=== PATIENT | female | born 1995 | race Native Hawaiian/Other Pacific Islander ===

== ENCOUNTER 2017-08-06 08:42 | Inpatient (IN) | payer MEDICAID ==
[~2017-08-06] VITALS: Ht 160 cm; Wt 68.0 kg
--- NOTE | 2017-08-06 08:42 | NUR ---
Patient BIBA ACLS, transferred to bed 8. RN evaluating patient at bedside.
--- NOTE | 2017-08-06 08:43 | NUR ---
Dr. Valadez evaluating patient at bedside.
--- NOTE | 2017-08-06 08:45 | NUR ---
21 F BROUGHT IN BY EMS C/O SYNCOPY WITH LOC DURING SHOWER THAT LASTED 2-3 MINS; PT STATED SHE STARTED TO FEEL DIZZY WHILE SHOWERING AND "EVERYTHING WENT BLACK"; PT STATES SHE HIT HER HEAD BUT NO INJURY TO TRAUMA NOTED TO PT; PT ALSO STATES SHE HAS BEEN ON HER MENES X 3 DAYS AND HAS BEEN "THE HEAVIEST" MENES SHE HAS HAD; PT STATES SHE IS GOING THRU 1 PAD PER HOUR; PT DENIES ANY SOB, CP, OR PAIN; PER RETAIL ANALYTICS MANAGER, BLOOD SUGAR IN FIELD 157, 1L NS BOLUS; DENIES N/V/D; SKIN IS PALE AND CLAMMY; AOX4; LUNGS CLEAR BL; RR ARE EVEN AND UNLABORED; PT IS NS ON CM; NAD; PATIENT POSITIONED FOR COMFORT; BED DOWN. ER MD MADE AWARE OF PT STATUS.
[2017-08-06] MEDS ORDERED: NACL 0.9% 1,000 ML IV SCH (08:47)
[2017-08-06 08:55] VITALS: BP 107/45
--- NOTE | 2017-08-06 09:09 | NUR ---
advanced manufacturing technician at bedside.
--- NOTE | 2017-08-06 09:36 | NUR ---
US tech at bedside for exam.
--- NOTE | 2017-08-06 09:41 | NUR ---
PATIENT RESTING IN GURNEY WITH MOTHER OF PT BY BEDSIDE; NAD; RR ARE EVEN AND UNLABORED; WILL CONTINUE TO MONITOR
[2017-08-06 09:54] LABS: ANION GAP 9.9 (8-16); CREATININE 0.6 mg/dL (0.6-1.3); POTASSIUM 3.9 mmol/L (3.5-5.1)
[2017-08-06 09:58] LABS: PROTHROMBIN TIME 11.4 secs (10.8-13.4)
[2017-08-06 09:59] LABS: MEAN CORPUSCULAR HEMOGLOBIN 20 pg (27-31); MEAN CORPUSCULAR HGB CONC 31 g/dL (33-37); MEAN CORPUSCULAR VOLUME 64 fL (80-94); PLATELET COUNT (AUTO) 82 K/uL (140-450); RED CELL DISTRIBUTION WIDTH 20.3 % (11.6-13.7); WHITE BLOOD COUNT (AUTO) 12.3 K/uL (4.5-11.0)
[2017-08-06 10:02] LABS: ALBUMIN 2.8 g/dL (3.4-5.0); TOTAL BILIRUBIN 0.2 mg/dL (0.0-1.0)
[2017-08-06 10:05] LABS: HEMATOCRIT 16.7 % (36-48); HEMOGLOBIN 5.2 g/dL (12.0-16.0)
[2017-08-06 10:25] LABS: EOSINOPHILS % (MANUAL) 1 % (0-4); LYMPHOCYTES % (MANUAL) 15 % (20-46); MONOCYTES % (MANUAL) 3 % (5-12)
[2017-08-06] MEDS ORDERED: NACL 0.9% 1,000 ML IV ONE (10:35)
[2017-08-06 10:42] LABS: BILIRUBIN,URINE NEGATIVE (NEGATIVE); BLOOD, URINE 3+ (NEGATIVE); NITRITE, URINE POSITIVE (NEGATIVE); PH,URINE 7.5 (5.0-9.0); UGLUCOSE 1+ (NEGATIVE)
[2017-08-06 10:47] LABS: APPEARANCE,URINE CLOUDY (CLEAR); COLOR,URINE RED (YELLOW)
[2017-08-06 10:49] LABS: LEUKOCYTE ESTERASE ,URINE 1+ (NEGATIVE)
[2017-08-06 10:51] LABS: RBC,URINE >20 (MANY) /HPF (0-5); WBC,URINE 0-5 (RARE) /HPF (0-5)
[2017-08-06] MEDS ORDERED: HYDROcodone/APAP 7.5/325 MG 1 TAB PO PRN (10:55)
--- NOTE | 2017-08-06 11:13 | NUR ---
Patient will be admitted to care of [facility]ino. Admited to Tele. Will go to room 113. Belongings list completed. Report to Amanda Vasquez.
--- NOTE | 2017-08-06 11:30 | NUR ---
PT ARRIVED AT UNIT. VS STABLE. PT HAS IV ON R AC 18G SL. PT HAS NO COMPLAINTS AT THIS TIME. ALERT AND ORIENTED. PROVIDED PT WITH PADS AND INITIATED FALL PRECAUTION DUE TO HX OF SYNCOPE. ORIENTED PT TO USE OF CALL LIGHT AND ROOM. CALL LIGHT WITHIN REACH. WILL CONTINUE TO MONITOR.
[2017-08-06 11:40] LABS: BARBITURATE, URINE NEG. ng/ml (NEG <=200); BENZODIAZEPINE, URINE NEG. ng/mL (NEG <=200); CANNABINOID, URINE NEG. ng/mL (NEG <=50); CHOL/HDL RATIO 4.7 (1-4.5); COCAINE, URINE NEG. ng/mL (NEG <=300); FREE T4 (FREE THYROXINE) 0.9 ng/dL (0.76-1.46); MAGNESIUM 1.6 mg/dL (1.8-2.4); OPIATE, URINE NEG. ng/mL (NEG <=2000); PHENCYCLIDINE SCREEN,URINE NEG. ng/mL (NEG <=25); PHOSPHORUS 3.1 mg/dL (2.5-4.9); THYROID STIMULATING HORMONE 1.39 uIU/mL (0.34-3.74)
[2017-08-06 12:00] VITALS: BP 103/54
[2017-08-06] MEDS ORDERED: FERRIC GLUCONATE 125 MG in NACL 0.9% 100 ML IV SCH (12:45)
[2017-08-06] MEDS: NACL 0.9% 1,000 ML IV SCH (12:45)
[2017-08-06] MEDS ORDERED: ESTROGENS CONJUGATED 25 MG INJ VIAL IM SCH (13:18)
[2017-08-06] MEDS ORDERED: ACETAMINOPHEN EXTRA STRENGTH 500 MG TAB PO SCH (13:44)
--- NOTE | 2017-08-06 14:00 | NUR ---
PER DR AMATO'S ORDER, ONLY GIVE 1 UNIT OF PRBC.
--- NOTE | 2017-08-06 14:10 | NUR ---
STARTED BLOOD TRANSFUSION @50ML/HR. VS STABLE.
--- NOTE | 2017-08-06 14:25 | NUR ---
STAYED WITH PT FOR FIRST 15 MINUTES OF TRANSFUSION. NO REACTION NOTED. CALL LIGHT WITHIN REACH. WILL CONTINUE TO MONITOR.
--- NOTE | 2017-08-06 16:00 | NUR ---
VS STABLE. PT RESTING COMFORTABLY IN BED. CALL LIGHT WITHIN REACH. WILL CONTINUE TO MONITOR.
--- NOTE | 2017-08-06 17:30 | NUR ---
PT STATED BLEEDING HAS LESSENED. SATURATED 1 PAD DURING 2.5 HOURS.
[2017-08-06] MEDS: LEVOFLOXACIN 750 MG/D5W PREMIX 150 ML IV SCH (18:28)
--- NOTE | 2017-08-06 18:30 | NUR ---
INSERTED NEW IV IN PT'S R F/A 22G. REMOVED OLD IV CANNULA INTACT. PT TOLERATED WELL. CALL LIGHT WITHIN REACH. WILL CONTINUE TO MONITOR.
--- NOTE | 2017-08-06 19:20 | NUR ---
ENDORSED PT TO DONALDO RN AT BEDSIDE. PT IN STABLE CONDITION.
--- NOTE | 2017-08-06 19:22 | NUR ---
RECEIVED REPORT FROM DAY SHIFT NURSE AT BEDSIDE. PT IS AAOX4, ON ROOM AIR. PT HAS A 22 GAUGE IV ON THE [facility] FA, ASYMPTOMATIC, RUNNING NS @80ML/HR. PT IS STABLE, NO SIGNS OF DISTRESS NOTED. SKIN IS INTACT. DISCUSSED PLAN OF CARE WITH PT, PT VERBALIZED UNDERSTANDING. VITAL SIGNS ARE WNL. BED IN LOW POSITION, CALL LIGHT WITHIN REACH. WILL CONTINUE TO MONITOR.
[2017-08-06 20:00] VITALS: BP 94/51
[2017-08-06] MEDS: DOCUSATE SODIUM 100 MG GELCAP PO SCH (20:20)
[2017-08-06 20:45] LABS: BASOPHILS # (AUTO) 0.2 K/uL (0.00-0.22); BASOPHILS % (AUTO) 1.5 % (0.0-2.0); EOSINOPHILS # (AUTO) 0.2 K/uL (0-0.4); EOSINOPHILS % (AUTO) 1.1 % (0.0-4.0); LYMPHOCYTES # (AUTO) 1.7 K/uL (2.5-16.5); LYMPHOCYTES % (AUTO) 11.7 % (20.5-51.1); MEAN CORPUSCULAR HEMOGLOBIN 22 pg (27-31); MEAN CORPUSCULAR HGB CONC 31 g/dL (33-37); MEAN CORPUSCULAR VOLUME 70 fL (80-94); MONOCYTES % (AUTO) 6.9 % (1.7-9.3); NEUTROPHILS % (AUTO) 78.8 % (42.2-75.2); PLATELET COUNT (AUTO) 100 K/uL (140-450); RED CELL DISTRIBUTION WIDTH 25.8 % (11.6-13.7); WHITE BLOOD COUNT (AUTO) 14.1 K/uL (4.5-11.0)
[2017-08-06 20:51] LABS: HEMOGLOBIN 5.9 g/dL (12.0-16.0)
[2017-08-06 20:52] LABS: HEMATOCRIT 18.8 % (36-48)
--- NOTE | 2017-08-06 20:52 | NUR ---
SPOKE TO TERESO FROM LAB OVER THE PHONE, PT HG IS 5.9, HCT 18.8, READ BACK VALUES AND THEN NOTIFIED DR. MSITH. DR SMITH READ BACK VALUES AND STATED SHE WOULD PUT IN ORDERS.
--- NOTE | 2017-08-06 22:06 | NUR ---
BLOOD TRANSFUSION STARTED AT A RATE OF 100ML/HR. PT TOLERATED WELL, VITAL SIGNS WITHIN NORMAL LIMITS. PT DENIES BACK PAIN, SOB, OR CHILLS.
--- NOTE | 2017-08-06 22:52 | NUR ---
SPOKE TO TERESO FROM LAB OVER THE PHONE, PT HG IS 5.9, HCT 18.8, READ BACK VALUES AND THEN NOTIFIED DR. SMITH. DR SMITH READ BACK VALUES AND STATED SHE WOULD PUT IN ORDERS. Addendum: 08/07/17 at 0018 by Edda Reyes RN DISREGARD.
--- NOTE | 2017-08-06 23:21 | NUR ---
PT IS TOLERATING BLOOD TRANSFUSION WELL. VITAL SIGNS HAVE BEEN WNL AND STABLE FOR OVER ONE HOUR. PT DENIES ANY SYMPTOMS. BED IN LOW POSITION, CALL LIGHT WITHIN REACH. WILL CONTINUE TO MONITOR PT CLOSELY.
[2017-08-07 00:15] VITALS: BP 111/53
--- NOTE | 2017-08-07 00:40 | NUR ---
BLOOD TRANSFUSION ENDED. PT VITAL SIGNS WNL. PT STABLE, NO SIGNS OF DISTRESS NOTED. BED IN LOW POSITION, CALL LIGHT WITHIN REACH. WILL CONTINUE TO MONITOR.
--- NOTE | 2017-08-07 00:55 | NUR ---
ADMINISTERED ZOFRAN FOR NAUSEA, PT TOLERATED WELL. PT STABLE, WITHOUT SIGNS OF DISTRESS. BED IN LOW POSITION, CALL LIGHT WITHIN REACH. WILL CONTINUE TO MONITOR.
[2017-08-07] MEDS: ONDANSETRON 4 MG/2 ML VIAL IVP PRN ×2 (00:56→20:25)
[2017-08-07 01:06] LABS: BASOPHILS # (AUTO) 0.3 K/uL (0.00-0.22); EOSINOPHILS # (AUTO) 0.1 K/uL (0-0.4); EOSINOPHILS % (AUTO) 0.7 % (0.0-4.0); MONOCYTES # (AUTO) 0.7 K/uL (0.8-1.0)
[2017-08-07] MEDS: NACL 0.9% 1,000 ML IV SCH ×2 (01:15→14:40)
[2017-08-07 01:28] LABS: BASOPHILS % (AUTO) 1.7 % (0.0-2.0); HEMATOCRIT 21.6 % (36-48); LYMPHOCYTES # (AUTO) 1.1 K/uL (2.5-16.5); MEAN CORPUSCULAR HEMOGLOBIN 23 pg (27-31); MEAN CORPUSCULAR HGB CONC 31 g/dL (33-37); MEAN CORPUSCULAR VOLUME 73 fL (80-94); MONOCYTES % (AUTO) 4.1 % (1.7-9.3); NEUTROPHILS # (AUTO) 14.9 K/uL (1.8-7.7); NEUTROPHILS % (AUTO) 86.8 % (42.2-75.2); PLATELET COUNT (AUTO) 141 K/uL (140-450); RED BLOOD CELL COUNT(AUTO) 2.97 MIL/uL (4.20-5.40); RED CELL DISTRIBUTION WIDTH 26.2 % (11.6-13.7)
[2017-08-07 01:58] LABS: HEMOGLOBIN 6.7 g/dL (12.0-16.0); WHITE BLOOD COUNT (AUTO) 17.1 K/uL (4.5-11.0)
[2017-08-07 01:59] LABS: LYMPHOCYTES % (AUTO) 6.7 % (20.5-51.1)
--- NOTE | 2017-08-07 02:15 | NUR ---
PT STABLE. REFUSED TO LET ANYONE BUT HER MOTHER PUT HER ON A BEDPAN. NO SIGNS OF DISTRESS NOTED. BED IN LOW POSITION, CALL LIGHT WITHIN REACH. WILL CONTINUE TO MONITOR.
[2017-08-07 04:00] VITALS: BP 97/50
--- NOTE | 2017-08-07 04:25 | NUR ---
PT STABLE. VITAL SIGNS WNL. NO SIGNS OF DISTRESS NOTED. BED IN LOW POSITION, CALL LIGHT WITHIN REACH. WILL CONTINUE TO MONITOR.
[2017-08-07 06:18] LABS: BASOPHILS # (AUTO) 0.3 K/uL (0.00-0.22); BASOPHILS % (AUTO) 1.7 % (0.0-2.0); EOSINOPHILS # (AUTO) 0.1 K/uL (0-0.4); EOSINOPHILS % (AUTO) 0.8 % (0.0-4.0); LYMPHOCYTES # (AUTO) 2.9 K/uL (2.5-16.5); LYMPHOCYTES % (AUTO) 17.7 % (20.5-51.1); MEAN CORPUSCULAR HEMOGLOBIN 23 pg (27-31); MEAN CORPUSCULAR HGB CONC 32 g/dL (33-37); MEAN CORPUSCULAR VOLUME 73 fL (80-94); MONOCYTES % (AUTO) 6.4 % (1.7-9.3); NEUTROPHILS # (AUTO) 11.9 K/uL (1.8-7.7); NEUTROPHILS % (AUTO) 73.4 % (42.2-75.2); PLATELET COUNT (AUTO) 96 K/uL (140-450); RED BLOOD CELL COUNT(AUTO) 2.65 MIL/uL (4.20-5.40); RED CELL DISTRIBUTION WIDTH 26.3 % (11.6-13.7); WHITE BLOOD COUNT (AUTO) 16.2 K/uL (4.5-11.0)
[2017-08-07 06:20] LABS: ANION GAP 13.8 (8-16); CARBON DIOXIDE 22.8 mmol/L (21-32); CREATININE 0.7 mg/dL (0.6-1.3); POTASSIUM 3.6 mmol/L (3.5-5.1)
[2017-08-07 06:24] LABS: MAGNESIUM 1.5 mg/dL (1.8-2.4); PHOSPHORUS 4.2 mg/dL (2.5-4.9)
--- NOTE | 2017-08-07 06:30 | NUR ---
PT STILL SLEEPING, MOTHER AT BEDSIDE. PT STABLE. NO SIGNS OF DISTRESS NOTED. BED IN LOW POSITION, CALL LIGHT WITHIN REACH. WILL CONTINUE TO MONITOR.
[2017-08-07 06:54] LABS: HEMATOCRIT 19.2 % (36-48); HEMOGLOBIN 6.2 g/dL (12.0-16.0)
--- NOTE | 2017-08-07 07:25 | NUR ---
ENDORSED PT TO DAY SHIFT RN FOR CONTINUITY OF CARE. PT IN STABLE CONDITION.
--- NOTE | 2017-08-07 07:26 | NUR ---
RECEIVED REPORT FROM LADLE CAR OPERATOR NURSE AT BEDSIDE FOR CONTINUITY OF CARE. PT IS AWAKE AND ORIENTED. INTRODUCED SELF AND UPDATED BOARD. VS ARE WNL. WILL RETURN WITH MEDS AND CONTINUE TO MONITOR.
[2017-08-07 08:00] VITALS: BP 114/65
[2017-08-07] MEDS ORDERED: ESTROGENS CONJUGATED 25 MG INJ VIAL IM SCH (08:37)
[2017-08-07] MEDS: LACTOBACILLUS RHAMNOSUS GG 1 EACH CAP PO SCH (09:08)
[2017-08-07] MEDS: CALCIUM CARBONATE 500 MG TAB PO SCH (09:08)
--- NOTE | 2017-08-07 09:08 | NUR ---
ADMINISTERED SCHEDULED MEDS. STATED SHE HAD NO BM FOR A FEW DAYS. GAVE COLACE FOR CONSTIPATION. PT TOLERATED MEDS WELL. NO COMPLAINTS AT THIS TIME WILL CONTINUE TO MONITOR.
[2017-08-07] MEDS: DOCUSATE SODIUM 100 MG GELCAP PO SCH ×2 (09:11→20:25)
--- NOTE | 2017-08-07 09:13 | NUR ---
PATIENT HAS BEEN SCREENED AND CATEGORIZED LOW NUTRITION RISK. PATIENT WILL BE SEEN WITHIN 7 DAYS OF ADMISSION. 08/12/[address]
[2017-08-07] MEDS ORDERED: WATER STERILE 10 ML MC ONE (10:26)
[2017-08-07] MEDS ORDERED: MAG SULF 2000 MG/WATER PREMIX 50 ML IV SCH (11:11)
[2017-08-07] MEDS ORDERED: ORTHO TRI CYCLEN PO SCH ×2 (11:17→11:24)
--- NOTE | 2017-08-07 11:25 | NUR ---
BLOOD TRANSFUSION STARTED. VS: TEMP 98.6 PULSE 94 RR 18 BP 106/56 PAIN 0.
[2017-08-07 12:00] VITALS: BP 110/58
--- NOTE | 2017-08-07 12:07 | NUR ---
CHECKED ON PT IN ROOM. BLOOD TRANSFUSION STILL INFUSING. NO REACTIONS NOTED. PT DENIES PAIN. NO FEVER. PT IS RESTING IN BED RIGHT NOW. FAMILY MEMBERS AT BEDSIDE.
--- NOTE | 2017-08-07 14:09 | NUR ---
BLOOD TRANSFUSION COMPLETED 275ML INFUSED. VS: TEMP 98.4 PULSE 103 RR 18 BP 123/58 PAIN 0/10.
--- NOTE | 2017-08-07 14:48 | NUR ---
STARTED MAG-RIDER IVPB. PT TOLERATING WELL. PT AMBULATED TO BATHROOM AND CHANGED PERIPAD. PT STATED SHE IS STILL HAVING BLEEDING CHANGING PAD EVERY 2-3 HOURS. PT ALSO STARTED FIRST DOSE OF CONTROL PILL AND GIVEN INSTRUCTIONS HOW TO TAKE AND WHEN TO TAKE PILL. PT VERBALIZED UNDERSTANDING AND AWARE OF NEED TO TAKE EVERYDAY AT SAME TIME. PT HAS NO OTHER COMPLAINS AT THIS TIME. FAMILY IS STILL AT BEDSIDE. WILL CONTINUE TO MONITOR.
[2017-08-07 16:00] VITALS: BP 118/58
[2017-08-07] MEDS: LEVOFLOXACIN 750 MG/D5W PREMIX 150 ML IV SCH (18:01)
--- NOTE | 2017-08-07 18:01 | NUR ---
ADMINISTERED LEVAQUIN IVPB. PT TOLERATING WELL. IV IS ON RIGHT FA 22G SITE IS INTACT. PT IS EATING DINNER RIGHT NOW AND HAS FAMILY AT BEDSIDE.
--- NOTE | 2017-08-07 18:30 | NUR ---
PT REQUESTED ZOFRAN FOR NAUSEA, ZOFRAN ADMINISTERED ALONG WITH SCHEDULED MED. PT TOLERATED WELL. PT IS STABLE, NO SIGNS OF DISTRESS NOTED. BED IN LOW POSITION, CALL LIGHT WITHIN REACH. WILL CONTINUE TO MONITOR. Addendum: 08/08/17 at 0826 by Edda Reyes RN WRONG ENTRY
[2017-08-07 19:13] LABS: BASOPHILS # (AUTO) 0.4 K/uL (0.00-0.22); BASOPHILS % (AUTO) 2.2 % (0.0-2.0); EOSINOPHILS # (AUTO) 0.1 K/uL (0-0.4); EOSINOPHILS % (AUTO) 0.7 % (0.0-4.0); LYMPHOCYTES % (AUTO) 18.8 % (20.5-51.1); MEAN CORPUSCULAR HEMOGLOBIN 25 pg (27-31); MEAN CORPUSCULAR HGB CONC 33 g/dL (33-37); MEAN CORPUSCULAR VOLUME 76 fL (80-94); MONOCYTES # (AUTO) 0.9 K/uL (0.8-1.0); MONOCYTES % (AUTO) 5.6 % (1.7-9.3); NEUTROPHILS # (AUTO) 11.6 K/uL (1.8-7.7); NEUTROPHILS % (AUTO) 72.7 % (42.2-75.2); PLATELET COUNT (AUTO) 149 K/uL (140-450); RED BLOOD CELL COUNT(AUTO) 2.59 MIL/uL (4.20-5.40)
--- NOTE | 2017-08-07 19:20 | NUR ---
ENDORSED PT TO ASSISTANT FOOTBALL COACH NURSE AT BEDSIDE FOR CONTINUITY OF CARE. PT IS AWAKE AND INSTABLE CONDITION.
--- NOTE | 2017-08-07 19:26 | NUR ---
RECEIVED REPORT FROM DAY SHIFT NURSE AT BEDSIDE. PT IS AAOX4, ON ROOM AIR. PT HAS A 22 GAUGE IV ON THE RIGHT FA, ASYMPTOMATIC, RUNNING NS @80ML/HR. PT IS STABLE, NO SIGNS OF DISTRESS NOTED. SKIN IS INTACT. DISCUSSED PLAN OF CARE WITH PT, PT VERBALIZED UNDERSTANDING. VITAL SIGNS ARE WNL. BED IN LOW POSITION, CALL LIGHT WITHIN REACH. WILL CONTINUE TO MONITOR.
[2017-08-07 19:29] LABS: HEMATOCRIT 19.6 % (36-48); HEMOGLOBIN 6.4 g/dL (12.0-16.0)
[2017-08-07 20:00] VITALS: BP 126/77
--- NOTE | 2017-08-07 20:30 | NUR ---
PT REQUESTED ZOFRAN FOR NAUSEA, ZOFRAN ADMINISTERED ALONG WITH SCHEDULED MED. PT TOLERATED WELL. PT IS STABLE, NO SIGNS OF DISTRESS NOTED. BED IN LOW POSITION, CALL LIGHT WITHIN REACH. WILL CONTINUE TO MONITOR.
--- NOTE | 2017-08-07 22:35 | NUR ---
PT IS STABLE, NO SIGNS OF DISTRESS NOTED. PT CHANGED PAD INDEPENDENTLY. BED IN LOW POSITION, CALL LIGHT WITHIN REACH. WILL CONTINUE TO MONITOR.
[2017-08-08] VITALS: BP 119/67
--- NOTE | 2017-08-08 00:30 | NUR ---
PT IS STABLE, NO SIGNS OF DISTRESS NOTED. VITAL SIGNS WITHIN NORMAL LIMITS. BED IN LOW POSITION, CALL LIGHT WITHIN REACH. WILL CONTINUE TO MONITOR.
[2017-08-08] MEDS: NACL 0.9% 1,000 ML IV SCH (02:15)
--- NOTE | 2017-08-08 02:45 | NUR ---
PT ASLEEP, IN STABLE CONDITION, NO SIGNS OF DISTRESS NOTED. BED IN LOW POSITION, CALL LIGHT WITHIN REACH. WILL CONTINUE TO MONITOR.
[2017-08-08 04:00] VITALS: BP 104/49
--- NOTE | 2017-08-08 04:20 | NUR ---
PT VITAL SIGNS ARE WITHIN NORMAL LIMITS. PT IS STABLE, NO SIGNS OF DISTRESS NOTED. BED IN LOW POSITION, CALL LIGHT WITHIN REACH. WILL CONTINUE TO MONITOR.
[2017-08-08] MEDS: ONDANSETRON 4 MG/2 ML VIAL IVP PRN (05:29)
--- NOTE | 2017-08-08 05:30 | NUR ---
PT C/O NAUSEA, ZOFRAN ADMINISTERED. PT TOLERATED WELL. PT IS STABLE, NO SIGNS OF DISTRESS NOTED. BED IN LOW POSITION, CALL LIGHT WITHIN REACH. WILL CONTINUE TO MONITOR.
[2017-08-08 06:57] LABS: ANION GAP 9.9 (8-16); CARBON DIOXIDE 24.8 mmol/L (21-32); CREATININE 0.7 mg/dL (0.6-1.3); POTASSIUM 3.7 mmol/L (3.5-5.1)
[2017-08-08 07:04] LABS: MAGNESIUM 1.8 mg/dL (1.8-2.4); PHOSPHORUS 3.2 mg/dL (2.5-4.9)
--- NOTE | 2017-08-08 07:30 | NUR ---
PT RECEIVED IN BED AWAKE ALERT AND ORIENTED X4. RESPONSIVE TO VERBAL COMMAND. PT DENIES ANY PAIN AT THIS TIME. IVF INFUSING ORDERED. PT'S MOTHER AT THE BED SITE.
--- NOTE | 2017-08-08 07:30 | NUR ---
ENDORSED PT AT BEDSIDE TO DAY SHIFT RN ELIZABETH, FOR CONTINUITY OF CARE. PT IN STABLE CONDITION.
[2017-08-08 08:00] VITALS: BP 113/58
[2017-08-08] MEDS: COMMUNICATION ORDER MC SCH (09:00)
[2017-08-08] MEDS ORDERED: ORTHO TRI CYCLEN PO SCH (09:00)
[2017-08-08] MEDS: DOCUSATE SODIUM 100 MG GELCAP PO SCH ×2 (09:49→20:47)
[2017-08-08] MEDS: LACTOBACILLUS RHAMNOSUS GG 1 EACH CAP PO SCH (09:50)
[2017-08-08] MEDS: CALCIUM CARBONATE 500 MG TAB PO SCH (09:50)
[2017-08-08 10:01] LABS: BASOPHILS # (AUTO) 0.4 K/uL (0.00-0.22); BASOPHILS % (AUTO) 2.7 % (0.0-2.0); EOSINOPHILS # (AUTO) 0.2 K/uL (0-0.4); EOSINOPHILS % (AUTO) 1.7 % (0.0-4.0); LYMPHOCYTES # (AUTO) 2.4 K/uL (2.5-16.5); LYMPHOCYTES % (AUTO) 17.7 % (20.5-51.1); MEAN CORPUSCULAR HEMOGLOBIN 25 pg (27-31); MEAN CORPUSCULAR HGB CONC 33 g/dL (33-37); MEAN CORPUSCULAR VOLUME 75 fL (80-94); MONOCYTES % (AUTO) 7.3 % (1.7-9.3); NEUTROPHILS # (AUTO) 9.8 K/uL (1.8-7.7); NEUTROPHILS % (AUTO) 70.6 % (42.2-75.2); PLATELET COUNT (AUTO) 62 K/uL (140-450); RED BLOOD CELL COUNT(AUTO) 1.99 MIL/uL (4.20-5.40); RED CELL DISTRIBUTION WIDTH 26.1 % (11.6-13.7); WHITE BLOOD COUNT (AUTO) 13.8 K/uL (4.5-11.0)
--- NOTE | 2017-08-08 10:22 | NUR ---
DR SHIPLEY INFORMED ABOUT H/H OF 04/03. WILL REVIEW THE LABS HERSELF AND ORDER THE APPROPRIATE COVERAGE.
[2017-08-08 11:56] VITALS: BP 106/48
[2017-08-08] MEDS: ORTHO TRI CYCLEN PO SCH (14:16)
[2017-08-08] MEDS: ACETAMINOPHEN 325 MG TAB PO PRN ×2 (14:25→22:30)
[2017-08-08 16:00] VITALS: BP 92/46
[2017-08-08] MEDS: LEVOFLOXACIN 750 MG/D5W PREMIX 150 ML IV SCH (17:47)
--- NOTE | 2017-08-08 19:30 | NUR ---
PATIENT REPORT RECEIVED AT BEDSIDE FROM MORNING NURSE. PATIENT'S FAMILY PRESENT. NO SIGNS AND SYMPTOMS OF DISTRESS NOTED. NO COMPLAINTS OF PAIN AT THIS TIME. IV SITE NOTED ON RIGHT FOREARM. IVF INFUSING WELL. BED IN LOWEST POSITION, SIDE RAILS UP AND CALL LIGHT WITHIN REACH.
--- NOTE | 2017-08-08 19:39 | NUR ---
PT UP SITTING IN BED TALKING TO HER FRIEND. NO DISTRESS OR PAIN AT THIS TIME. 1 UNIT OF PRBC ORDERED.
[2017-08-08 20:00] VITALS: BP 110/53
--- NOTE | 2017-08-08 21:50 | NUR ---
IV SITE ON RIGHT FOREARM DISCONTINUED. IV CANNULA INTACT. NEW IV SITE INSERTED ON RIGHT UPPER FOREARM, 20 GAUGE. SITE IS ASYMPTOMATIC AND PATENT
--- NOTE | 2017-08-08 22:05 | NUR ---
BLOOD TRANSFUSION STARTED. VITAL SIGNS TAKEN AND ARE WITHIN NORMAL LIMITS. NO SIGNS AND SYMPTOMS OF DISTRESS NOTED. NO COMPLAINTS OF PAIN. WILL CONTINUE TO MONITOR
--- NOTE | 2017-08-08 23:00 | NUR ---
CHECKED ON PATIENT, BLOOD TRANSFUSION STILL ON GOING. NO SIGNS AND SYMPTOMS OF DISTRESS NOTED. WILL CONTINUE TO MONITOR.
[2017-08-09] VITALS (7 sets, daily range): BP systolic 99–105; BP diastolic 48–58
--- NOTE | 2017-08-09 | NUR ---
CHECKED ON PATIENT, BLOOD TRANSFUSION STILL ON GOING. NO SIGNS AND SYMPTOMS OF DISTRESS NOTED. VITAL SIGNS WITHIN NORMAL LIMITS. WILL CONTINUE TO MONITOR.
--- NOTE | 2017-08-09 00:50 | NUR ---
BLOOD TRANSFUSION COMPLETE. NO SIGNS AND SYMPTOMS OF DISTRESS NOTED. VITAL SIGNS: BP-97/51, TEMP-98.6, PULSE RATE-91, O2 SAT-100%, RR-18
[2017-08-09] MEDS: ONDANSETRON 4 MG/2 ML VIAL IVP PRN (04:47)
[2017-08-09 06:40] LABS: EOSINOPHILS # (AUTO) 0.2 K/uL (0-0.4)
[2017-08-09 06:49] LABS: ANION GAP 12.5 (8-16); CREATININE 0.7 mg/dL (0.6-1.3); POTASSIUM 3.5 mmol/L (3.5-5.1)
[2017-08-09 06:54] LABS: PROTHROMBIN TIME 10.6 secs (10.8-13.4)
[2017-08-09 06:58] LABS: MAGNESIUM 1.8 mg/dL (1.8-2.4)
[2017-08-09 07:07] LABS: BASOPHILS # (AUTO) 0.5 K/uL (0.00-0.22); BASOPHILS % (AUTO) 3.4 % (0.0-2.0); LYMPHOCYTES # (AUTO) 2.4 K/uL (2.5-16.5); LYMPHOCYTES % (AUTO) 14.9 % (20.5-51.1); MEAN CORPUSCULAR HEMOGLOBIN 26 pg (27-31); MEAN CORPUSCULAR HGB CONC 33 g/dL (33-37); MEAN CORPUSCULAR VOLUME 78 fL (80-94); MONOCYTES % (AUTO) 6.1 % (1.7-9.3); NEUTROPHILS # (AUTO) 11.7 K/uL (1.8-7.7); NEUTROPHILS % (AUTO) 74.6 % (42.2-75.2); PLATELET COUNT (AUTO) 132 K/uL (140-450); RED BLOOD CELL COUNT(AUTO) 2.37 MIL/uL (4.20-5.40); WHITE BLOOD COUNT (AUTO) 15.8 K/uL (4.5-11.0)
--- NOTE | 2017-08-09 07:25 | NUR ---
PATIENT REPORT GIVEN AT BEDSIDE TO MORNING NURSE. PATIENT IS IN STABLE CONDITION.
--- NOTE | 2017-08-09 07:26 | NUR ---
RECEIVED REPORT FROM TOUR AGENT NURSE AT BEDSIDE FOR CONTINUITY OF CARE. PT IS ASLEEP RIGHT NOW. FAMILY AT BEDSIDE.
[2017-08-09 07:54] LABS: HEMATOCRIT 18.5 % (36-48); HEMOGLOBIN 6.1 g/dL (12.0-16.0)
[2017-08-09] MEDS: LACTOBACILLUS RHAMNOSUS GG 1 EACH CAP PO SCH (08:40)
[2017-08-09] MEDS: CALCIUM CARBONATE 500 MG TAB PO SCH (08:40)
[2017-08-09] MEDS: DOCUSATE SODIUM 100 MG GELCAP PO SCH ×2 (08:40→20:25)
--- NOTE | 2017-08-09 08:40 | NUR ---
ADMINISTERED SCHEDULED MEDS TO PT. PT TOLERATED WELL. PT STATED SHE HAD A BM YESTERDAY AND REQUESTED PRUNE JUICE. PT VS WNL. DENIES PAIN AND HEAVY BLEEDING. PT STATED SHE HAS LITTLE AMOUNT OF BLOOD ON PERIPADS. IV IS ON RIGHT FA 20G NS AT 10ML/HR. SKIN IS INTACT. DISCUSSED PLAN FOR TODAY WITH PT. SHE HAS NO COMPLAINTS AT THIS TIME. WILL CONTINUE TO MONITOR.
[2017-08-09] MEDS: COMMUNICATION ORDER MC SCH (08:41)
[2017-08-09] MEDS: NACL 0.9% 1,000 ML IV SCH (11:29)
[2017-08-09] MEDS: FERRIC GLUCONATE 125 MG in NACL 0.9% 100 ML IV SCH (11:30)
--- NOTE | 2017-08-09 11:30 | NUR ---
ADMINISTERED FERRLECIT IVPB. PT TOLERATING WELL. INSTRUCTED PT TO CALL RN WHEN NEED TO USE BATHROOM AND CHANGE PERIPAD TO OBSERVE SATURATION OF PAD. PT VERBALIZED UNDERSTANDING AND STATE SHE WILL CALL NEXT TIME SHE CHANGES PERIPAD. PT IS RESTING IN BED RIGHT NOW. WILL CONTINUE TO MONITOR.
--- NOTE | 2017-08-09 12:39 | NUR ---
CHECKED ON PT IN ROOM. FERRLECIT STILL INFUSING IVPB. PT TOLERATING WELL. PT IS SITTING UP IN BED EATING LUNCH. FAMILY MEMBERS ARE AT BEDSIDE. INFORMED PT AGAIN TO CALL WHEN SHE NEEDS TO CHANGE HER PERIPAD. PT VERBALIZED UNDERSTANDING.
--- NOTE | 2017-08-09 13:45 | NUR ---
CHECKED PERIPAD. MODERATE AMOUNT OF BLOOD NOTED. PT STATED SHE LAST CHANGED HER PAD THIS MORNING AND WILL CALL WHEN NEXT TIME SHE CHANGES PERIPAD.
[2017-08-09] MEDS: ORTHO TRI CYCLEN PO SCH (14:20)
--- NOTE | 2017-08-09 14:20 | NUR ---
ADMINISTERED ORAL TRI CYCLEN. PER PT REQUEST TO TAKE PILL SAME TIME EVERYDAY AT 1430. PT TOLERATED WELL. MOM IS AT BEDSIDE. NO COMPLAINTS AT THIS TIME WILL CONTINUE TO MONITOR.
--- NOTE | 2017-08-09 16:45 | NUR ---
CHECKED PERIPAD. MODERATE AMOUNT OF BLOOD NOTED. PT GOT UP TO USE BATHROOM TO VOID. DENIES PAIN. VS: BP 105/56 HR 86 RR 17 O2 SAT 98% ON ROOM AIR TEMP 98.8 F. PT IS RESTING COMFORTABLY IN BED. MOTHER IS AT BEDSIDE. WILL CONTINUE TO MONITOR.
[2017-08-09] MEDS: LEVOFLOXACIN 750 MG/D5W PREMIX 150 ML IV SCH (17:34)
--- NOTE | 2017-08-09 18:55 | NUR ---
CHECKED PT PERIPAD. MODERATE AMOUNT OF BLOOD NOTED. NO SATURATED PERIPAD OR HEAVY BLEEDING REPORTED FROM PT.
--- NOTE | 2017-08-09 19:05 | NUR ---
ENDORSED PT TO TRANSPORTATION CONSULTANT NURSE AT BEDSIDE FOR CONTINUITY OF CARE. PT IN STABLE CONDITION. MOTHER IS AT BEDSIDE.
--- NOTE | 2017-08-09 19:10 | NUR ---
RECEIVED PT IN STABLE CONDITION FROM AM NURSE. AWAKE,ALERT AND ORIENTED X4. AMBULATORY TO BATHROOM. ON TELE MONITOR-SR. DENIES ANY PAIN NOR DISCOMFORT NOTED . WITH IVF INFUSING WELL ON THE RT FA#20. CLEAR AND PATENT. PLAN OF CARE DISCUSSED WITH PT AND VERBALIZED UNDERSTANDING. CALL LIGHT PLACED WITHIN EASY REACH. WILL CONTINUE TO MONITOR.
--- NOTE | 2017-08-09 20:00 | NUR ---
1 UNIT PRBC STARTED AFTER VERIFIED WITH DEONTE ZHANG CHARGE AND WITH PT. PT MADE AWARE OF THE REACTIONS THAT NEED TO MONITOR WHILE ON TRANSFUSION. PT VERBALIZED UNDERSTANDING. WILL CONTINUE TO MONITOR.
--- NOTE | 2017-08-09 21:15 | NUR ---
CHECKED ON PT. BLOOD TRANSFUSION STILL GOING ON. VITAL SIGNS STABLE. NO REACTION NOTED AT THIS TIME. WILL CONTINUE TO MONITOR.
--- NOTE | 2017-08-09 22:15 | NUR ---
CHECKED ON PT. BLOOD TRANSFUSION STILL GOING ON. PT JUST BEEN TO BATHROOM. CHANGED PADS. WITH SCANTY VAGINAL BLEEDING.
--- NOTE | 2017-08-09 23:30 | NUR ---
BLOOD TRANSFUSION OF 1 UNIT PRBC FINISHED. VITAL SIGNS TAKEN, STABLE. NO REACTION NOTED.
--- NOTE | 2017-08-10 01:30 | NUR ---
SLEEPING WELL AT THIS TIME. NO S/S OF ANY DISCOMFORT NOTED.
--- NOTE | 2017-08-10 02:30 | NUR ---
PT UP TO THE BATHROOM. CHANGED PAD WITH MODERATE VAGINAL BLEEDING. NO C/O PAIN NOTED.
[2017-08-10 04:00] VITALS: BP 106/59
--- NOTE | 2017-08-10 04:00 | NUR ---
REPOSITIONED FOR COMFORT. NO C/O ANY DISCOMFORT NOTED.
--- NOTE | 2017-08-10 06:19 | NUR ---
BLOOD DRAWN THIS AM . WILL FOLLOW UP RESULT.
[2017-08-10 07:13] LABS: BASOPHILS # (AUTO) 0.5 K/uL (0.00-0.22); BASOPHILS % (AUTO) 3.5 % (0.0-2.0); EOSINOPHILS # (AUTO) 0.2 K/uL (0-0.4); EOSINOPHILS % (AUTO) 1.5 % (0.0-4.0); LYMPHOCYTES # (AUTO) 2.1 K/uL (2.5-16.5); LYMPHOCYTES % (AUTO) 14.2 % (20.5-51.1); MEAN CORPUSCULAR HEMOGLOBIN 27 pg (27-31); MEAN CORPUSCULAR HGB CONC 33 g/dL (33-37); MEAN CORPUSCULAR VOLUME 81 fL (80-94); MONOCYTES # (AUTO) 0.9 K/uL (0.8-1.0); MONOCYTES % (AUTO) 6.2 % (1.7-9.3); NEUTROPHILS # (AUTO) 10.9 K/uL (1.8-7.7); NEUTROPHILS % (AUTO) 74.6 % (42.2-75.2); PLATELET COUNT (AUTO) 154 K/uL (140-450); RED BLOOD CELL COUNT(AUTO) 2.56 MIL/uL (4.20-5.40); RED CELL DISTRIBUTION WIDTH 21.6 % (11.6-13.7); WHITE BLOOD COUNT (AUTO) 14.6 K/uL (4.5-11.0)
[2017-08-10 07:20] LABS: ANION GAP 13.1 (8-16); CARBON DIOXIDE 25.9 mmol/L (21-32); CREATININE 0.7 mg/dL (0.6-1.3)
--- NOTE | 2017-08-10 07:20 | NUR ---
ENDORSED PT IN STABLE CONDITION TO AM NURSE.
--- NOTE | 2017-08-10 07:21 | NUR ---
RECEIVED PT FROM STRIPPING SHOVEL OPERATOR RN AT BEDSIDE. PT IS A&OX4. PT HAS IV ON R F/A 20G RUNNING NS@10ML/HR. PT HAS NO COMPLAINTS AT THIS TIME. STATED PAD CHANGED THIS AM HAD ONLY SCANT BLOOD. NO ACUTE DISTRESS NOTED IN PT. CALL LIGHT WITHIN REACH. WILL CONTINUE TO MONITOR.
[2017-08-10 08:00] VITALS: BP 108/59
[2017-08-10 08:25] LABS: HEMOGLOBIN 6.8 g/dL (12.0-16.0)
[2017-08-10 08:29] LABS: HEMATOCRIT 20.6 % (36-48)
[2017-08-10] MEDS ORDERED: ASCORBIC ACID 500 MG TAB PO SCH (09:00)
--- NOTE | 2017-08-10 09:00 | NUR ---
PT IS STABLE. NO COMPLAINTS. CALL LIGHT WITHIN REACH. WILL CONTINUE TO MONITOR.
[2017-08-10] MEDS: CALCIUM CARBONATE 500 MG TAB PO SCH (09:36)
[2017-08-10] MEDS: DOCUSATE SODIUM 100 MG GELCAP PO SCH (09:36)
[2017-08-10] MEDS: LACTOBACILLUS RHAMNOSUS GG 1 EACH CAP PO SCH (09:36)
[2017-08-10] MEDS: COMMUNICATION ORDER MC SCH (09:37)
[2017-08-10] MEDS ORDERED: NORG1TAB8 PO (10:27)
[2017-08-10] MEDS ORDERED: OSC500 PO (10:27)
[2017-08-10] MEDS ORDERED: LACT10CA PO (10:27)
[2017-08-10] MEDS ORDERED: LEVO250T2 PO (10:27)
[2017-08-10] MEDS ORDERED: ASCO500T93 PO (10:27)
[2017-08-10] MEDS ORDERED: FERR324T11 PO (10:27)
[2017-08-10 11:05] VITALS: BP 108/59
--- NOTE | 2017-08-10 11:50 | NUR ---
WENT OVER DC PAPERWORK, F/U APPT TIMES WITH DR. JERMAINE HINES AND DR. MONAE, AND ALL MEDS WITH PT. PT VERBALIZED UNDERSTANDING AND SIGNED APPROPRIATE PAPERWORK. CALL LIGHT WITHIN REACH. WILL CONTINUE TO MONITOR.
[2017-08-10] MEDS: FERRIC GLUCONATE 125 MG in NACL 0.9% 100 ML IV SCH (11:56)
[2017-08-10 12:00] VITALS: BP 112/56
--- NOTE | 2017-08-10 13:00 | NUR ---
PT IN STABLE CONDITION. EATING LUNCH IN BED. CALL LIGHT WITHIN REACH. WILL CONTINUE TO MONITOR.
--- NOTE | 2017-08-10 14:09 | NUR ---
REMOVED IV, CANNULA INTACT. CUT ALL ID BANDS. PT REFUSED WHEELCHAIR. PT IN STABLE CONDITION. WALKED PT OUT OF HOSPITAL, ACCOMPANIED BY MOTHER.
== END 2017-08-10 14:09 | disposition home or self-care (01) | DRG 720 ==
LOC: MED 08:42 → MTU 10:57
PROVIDERS: ADMIT Family Medicine; ATTEND Family Medicine
PROC: 30233N1 Transfusion of Nonautologous Red Blood Cells into Peripheral Vein, Percutaneous Approach (ICD-10-PCS; principal; 2017-08-06)
DX: A41.9 Sepsis, unspecified organism (principal); N17.0 Acute kidney failure with tubular necrosis; D62 Acute posthemorrhagic anemia; E83.51 Hypocalcemia; E83.42 Hypomagnesemia; D69.59 Other secondary thrombocytopenia; N92.0 Excessive and frequent menstruation with regular cycle; N39.0 Urinary tract infection, site not specified; Z88.0 Allergy status to penicillin
CPT/HCPCS: 36415; 71010; 76830; 76856; 80048; 80053; 80305; 81001; 82607; 82728; 82746; 83036; 83540; 83735; 83880; 84100; 84439; 84443; 84484; 84703; 85025; 85045; 85610; 85730; 86886; 86900; 86901; 86920; 87040; 87081; 87086; 93005; 96360; 96361; 99285; J1410; J1956; J2405; J2916; J3475; J7030; P9016; Q0092; Q0163

== ENCOUNTER 2024-03-04 22:49 | Inpatient (IN) | payer MEDICAID, OTHER ==
[~2024-03-04] VITALS: Ht 160 cm; Wt 86.2 kg
[~2024-03-04 22:49] MED LIST: ASCO500T93 PO; ETHI1TAB PO; FERR324T11 PO; LACT10CA PO; LEVO250T2 PO; OSC500 PO
[2024-03-04 23:28] VITALS: BP 157/106; PULSE 137; RESP 17; TEMP 97.9; O2SAT 97
[2024-03-05 00:06] LABS: BASOPHILS # (AUTO) 0.1 K/uL (0.00-0.22); BASOPHILS % (AUTO) 0.8 % (0.0-2.0); EOSINOPHILS # (AUTO) 0.3 K/uL (0-0.4); EOSINOPHILS % (AUTO) 1.6 % (0.0-4.0); HEMATOCRIT 37.2 % (36-48); HEMOGLOBIN 12.6 g/dL (12.0-16.0); LYMPHOCYTES # (AUTO) 3.6 K/uL (2.5-16.5); LYMPHOCYTES % (AUTO) 18.5 % (20.5-51.1); MEAN CORPUSCULAR HEMOGLOBIN 29 pg (27-31); MEAN CORPUSCULAR HGB CONC 34 g/dL (33-37); MEAN CORPUSCULAR VOLUME 86.9 fL (80-94); MONOCYTES # (AUTO) 1.4 K/uL (0.8-1.0); NEUTROPHILS % (AUTO) 72.1 % (42.2-75.2); PLATELET COUNT (AUTO) 198 K/uL (140-450); RED BLOOD CELL COUNT(AUTO) 4.28 MIL/uL (4.20-5.40); RED CELL DISTRIBUTION WIDTH 13.3 % (11.6-13.7); WHITE BLOOD COUNT (AUTO) 19.4 K/uL (4.8-10.8)
[2024-03-05 00:09] LABS: APPEARANCE,URINE CLEAR (CLEAR); BILIRUBIN,URINE NEGATIVE (NEGATIVE); BLOOD, URINE NEGATIVE (NEGATIVE); COLOR,URINE YELLOW (YELLOW); LEUKOCYTE ESTERASE ,URINE TRACE (NEGATIVE); NITRITE, URINE NEGATIVE (NEGATIVE); PROTEIN,URINE NEGATIVE (NEGATIVE); UGLUCOSE NEGATIVE (NEGATIVE); UROBILINOGEN,URINE 0.2 EU/dL (0.2 - 1)
[2024-03-05 00:21] LABS: ALBUMIN 3.8 g/dL (3.4-5.0); ANION GAP 14.4 (8-16); CALCIUM 9.6 mg/dL (8.5-10.1); CARBON DIOXIDE 25.3 mmol/L (21-32); CREATININE 0.9 mg/dL (0.6-1.3); POTASSIUM 3.7 mmol/L (3.5-5.1); TOTAL BILIRUBIN 0.4 mg/dL (0.0-1.0); TOTAL PROTEIN, SERUM 7.9 g/dL (6.4-8.2)
[2024-03-05 00:22] LABS: BACTERIA,URINE >30 (MANY) /HPF (None Seen); MUCUS,URINE 1+ /LPF (None Seen); RBC,URINE 0-5 /HPF (0-5); SQUAMOUS EPITHELIAL CELL,UR 4-10 (MOD) /LPF (0-3 (FEW))
[2024-03-05] MEDS: ONDANSETRON 4 MG/2 ML VIAL IVP ONE (02:29)
[2024-03-05] MEDS: MORPHINE SULFATE 4 MG/ML SYR IVP ONE ×2 (02:30→04:13)
[2024-03-05] MEDS: NACL 0.9% 1,000 ML IV ONE (02:30)
[2024-03-05 02:38] LABS: LACTIC ACID 1.6 mmol/L (0.4-2.0)
[2024-03-05] MEDS ORDERED: HYDROmorphone PFS 2 MG/ML SYR ONE (05:04)
[2024-03-05] MEDS: HYDROmorphone 1 MG/ML AMP IVP ONE (05:13)
[2024-03-05] MEDS ORDERED: [UNRECOGNIZED DRUG - CODE] PO (05:38)
[2024-03-05] MEDS ORDERED: MORPHINE SULFATE 2 MG/ML SYR IVP PRN (05:40)
[2024-03-05] MEDS ORDERED: ACETAMINOPHEN 325 MG TAB PO PRN (05:40)
[2024-03-05] MEDS ORDERED: ONDANSETRON 4 MG/2 ML VIAL IVP PRN (05:40)
[2024-03-05 05:54] LABS: BASOPHILS # (AUTO) 0.1 K/uL (0.00-0.22); BASOPHILS % (AUTO) 0.5 % (0.0-2.0); EOSINOPHILS # (AUTO) 0.1 K/uL (0-0.4); EOSINOPHILS % (AUTO) 0.8 % (0.0-4.0); HEMATOCRIT 30.3 % (36-48); HEMOGLOBIN 10.3 g/dL (12.0-16.0); LYMPHOCYTES # (AUTO) 3.2 K/uL (2.5-16.5); LYMPHOCYTES % (AUTO) 20.4 % (20.5-51.1); MEAN CORPUSCULAR HEMOGLOBIN 30 pg (27-31); MEAN CORPUSCULAR HGB CONC 34 g/dL (33-37); MEAN CORPUSCULAR VOLUME 87.2 fL (80-94); MONOCYTES # (AUTO) 1.1 K/uL (0.8-1.0); MONOCYTES % (AUTO) 6.8 % (1.7-9.3); NEUTROPHILS # (AUTO) 11.3 K/uL (1.8-7.7); NEUTROPHILS % (AUTO) 71.5 % (42.2-75.2); PLATELET COUNT (AUTO) 140 K/uL (140-450); RED BLOOD CELL COUNT(AUTO) 3.48 MIL/uL (4.20-5.40); RED CELL DISTRIBUTION WIDTH 13.1 % (11.6-13.7); WHITE BLOOD COUNT (AUTO) 15.8 K/uL (4.8-10.8)
[2024-03-05 05:58] LABS: INR 1.08 (0.8-1.2); PARTIAL THROMBOPLASTIN TIME 26.5 secs (22-35.6); PROTHROMBIN TIME 11.3 secs (10.8-13.4)
[2024-03-05] MEDS: NACL 0.9% 1,000 ML IV SCH (06:38)
[2024-03-05 08:00] VITALS: PULSE 90; RESP 18; O2SAT 97
[2024-03-05] MEDS ORDERED: ENOXAPARIN 40 MG/0.4 ML SYR SUBQ SCH (09:00)
[2024-03-05 09:34] VITALS: PULSE 90; RESP 18; O2SAT 97
[2024-03-05 12:00] VITALS: BP 113/69; PULSE 124; RESP 17; TEMP 98.2; O2SAT 94
[2024-03-05] MEDS ORDERED: PIPERACILLIN/TAZOBACTAM 3.375 GM in DEXTROSE 5% 50 ML IV SCH (13:00)
[2024-03-05 16:00] VITALS: BP 116/66; PULSE 91; RESP 17; TEMP 97.7; O2SAT 96
[2024-03-05 20:00] VITALS: BP 127/74; PULSE 91; RESP 17; TEMP 98.2; O2SAT 95; O2SAT 96
[2024-03-05] MEDS: MEDS-TO-BEDS MC SCH (21:14)
[2024-03-06] VITALS: BP 119/73; PULSE 88; PULSE 92; RESP 18; TEMP 97.2; O2SAT 95
[2024-03-06 04:00] VITALS: BP 123/81; PULSE 84; PULSE 91; RESP 18; TEMP 97.3; O2SAT 96
[2024-03-06] MEDS: HYDROcodone/APAP 5/325 MG 1 TAB TAB PO PRN (04:19)
[2024-03-06 05:41] LABS: BASOPHILS # (AUTO) 0.1 K/uL (0.00-0.22); BASOPHILS % (AUTO) 0.6 % (0.0-2.0); EOSINOPHILS # (AUTO) 0.3 K/uL (0-0.4); EOSINOPHILS % (AUTO) 2.8 % (0.0-4.0); HEMATOCRIT 27.9 % (36-48); HEMOGLOBIN 9.5 g/dL (12.0-16.0); LYMPHOCYTES # (AUTO) 3.3 K/uL (2.5-16.5); MEAN CORPUSCULAR HEMOGLOBIN 30 pg (27-31); MEAN CORPUSCULAR HGB CONC 34 g/dL (33-37); MEAN CORPUSCULAR VOLUME 86.9 fL (80-94); MONOCYTES # (AUTO) 0.9 K/uL (0.8-1.0); MONOCYTES % (AUTO) 7.8 % (1.7-9.3); NEUTROPHILS # (AUTO) 6.9 K/uL (1.8-7.7); NEUTROPHILS % (AUTO) 59.8 % (42.2-75.2); PLATELET COUNT (AUTO) 127 K/uL (140-450); RED BLOOD CELL COUNT(AUTO) 3.21 MIL/uL (4.20-5.40); RED CELL DISTRIBUTION WIDTH 13.2 % (11.6-13.7); WHITE BLOOD COUNT (AUTO) 11.5 K/uL (4.8-10.8)
[2024-03-06 06:42] LABS: POTASSIUM 3.3 mmol/L (3.5-5.1)
[2024-03-06 06:43] LABS: CALCIUM 8.2 mg/dL (8.5-10.1); CARBON DIOXIDE 25.3 mmol/L (21-32); CREATININE 0.6 mg/dL (0.6-1.3)
[2024-03-06 06:44] LABS: TOTAL PROTEIN, SERUM 6.5 g/dL (6.4-8.2)
[2024-03-06 07:30] LABS: TOTAL BILIRUBIN 0.4 mg/dL (0.0-1.0)
[2024-03-06 08:00] VITALS: BP 115/65; PULSE 71; RESP 17; TEMP 97.2; O2SAT 97
[2024-03-06] MEDS ORDERED: NITR100C7 PO (13:03)
[2024-03-06] MEDS ORDERED: ACET-9525 PO (13:03)
[2024-03-06] MEDS: POTASSIUM CHLORIDE 40 MEQ, LIDOCAINE 1% 25 MG in NACL 0.9% 250 ML IV SCH (14:16)
[2024-03-06 14:22] VITALS: BP 115/65; PULSE 71; RESP 17; TEMP 97.2
[2024-03-06 16:00] VITALS: BP 123/77; PULSE 94; RESP 18; TEMP 98.6; O2SAT 97
== END 2024-03-06 16:55 | disposition home or self-care (01) | DRG 463 ==
LOC: MED 22:49 → MMU 03-05 05:42
PROVIDERS: ADMIT Internal Medicine; ATTEND Internal Medicine
DX: N39.0 Urinary tract infection, site not specified (principal); R65.10 Systemic inflammatory response syndrome (SIRS) of non-infectious origin without acute organ dysfunction; E66.9 Obesity, unspecified; N83.201 Unspecified ovarian cyst, right side; Z88.0 Allergy status to penicillin; Z79.899 Other long term (current) drug therapy; Z68.33 Body mass index [BMI] 33.0-33.9, adult
CPT/HCPCS: 36415; 74176; 76830; 76856; 80053; 81001; 83605; 83690; 83735; 85025; 85610; 85730; 86886; 86900; 86901; 87040; 87081; 87086; 93976; 96361; 96374; 96375; 96376; 99291; J0696; J1170; J2001; J2270; J2405; J3480; J7030; J7060; Q0092